=== PATIENT | male | born 1990 | race Two or more races ===

== ENCOUNTER 2019-09-03 01:24 | Emergency (ER) | payer OTHER ==
[~2019-09-03] VITALS: Ht 175.3 cm; Wt 113.4 kg
--- NOTE | 2019-09-03 01:52 | NUR ---
BIB EMS C/O SEIZURE WITNESSED BY LASTED APPROX 5MIN PER EMS REPORT. + ORAL TRAUMA. CURRENTLY A, OX4. W/ C/O H/A, VSS. WILL CONT TO MONITOR ,
[2019-09-03] MEDS ORDERED: ACETAMINOPHEN ES 500 MG TABLET ONE (02:08)
[2019-09-03 02:10] LABS: BASOPHILS % (AUTO) 0.6 % (0.0-2.0); EOSINOPHILS % (AUTO) 2.9 % (0.0-6.0); HEMATOCRIT 45 % (39-51); LYMPHOCYTES # (AUTO) 2.4 /CMM (0.8-4.8); LYMPHOCYTES % (AUTO) 33.2 % (20.0-44.0); MEAN CORPUSCULAR HGB CONC 33 g/dl (31.0-36.0); MEAN CORPUSCULAR VOLUME 85 fL (80-96); MONOCYTES # (AUTO) 0.5 /CMM (0.1-1.30); MONOCYTES % (AUTO) 7.5 % (2.0-12.0); NEUTROPHILS # (AUTO) 4.1 /CMM (1.8-8.9); NEUTROPHILS % (AUTO) 55.8 % (43.0-81.0); PLATELET COUNT (AUTO) 212 /CMM (150-450); WHITE BLOOD COUNT (AUTO) 7.3 K/uL (4.3-11.0)
[2019-09-03 02:26] LABS: ALBUMIN 3.7 g/dL (3.4-5.0); BILIRUBIN,DIRECT 0.1 mg/dL (0.0-0.2); BILIRUBIN,TOTAL 0.4 mg/dL (0.2-1.0); CALCIUM, SERUM 8.7 mg/dL (8.5-10.1); POTASSIUM 3.9 mmol/L (3.5-5.1); TOTAL PROTEIN, SERUM 8.2 g/dL (6.4-8.2)
[2019-09-03] MEDS ORDERED: ACETAMINOPHEN ES 500 MG TABLET PO ONE (02:30)
--- NOTE | 2019-09-03 02:33 | NUR ---
Patient is resting comfortably in bed with eyes closed. Easily aroused. VSS
[2019-09-03 04:52] LABS: APPEARANCE,URINE Clear (CLEAR); BILIRUBIN,URINE Negative (NEGATIVE); BLOOD, URINE Negative Ery/uL (NEGATIVE); COLOR,URINE Yellow (YELLOW); KETONES,URINE Negative (NEGATIVE); LEUKOCYTE ESTERASE ,URINE Negative (NEGATIVE); NITRITE, URINE Negative (NEGATIVE); PH,URINE 5.5 (5.0-8.0); PROTEIN,URINE Trace mg/dl (NEGATIVE); UGLUCOSE Negative (NEGATIVE); UROBILINOGEN,URINE 0.2 EU/dL (0.2)
--- NOTE | 2019-09-03 05:04 | NUR ---
PT IS MEDICALLY CLEAR FOR D/C. VSS. STABLE GAITS NOTED UOPON AMBULATION. CALLED TO HOSTESS THE PT. IV removed. Catheter intact and site benign. Pressure and 4x4 applied to site. No bleeding noted.
[2019-09-03 05:25] LABS: BACTERIA,URINE Rare /HPF (None Seen); RBC,URINE 0-2 /HPF (0-2); SQUAMOUS EPITHELIAL CELL,UR Rare /HPF (None Seen)
--- NOTE | 2019-09-03 05:28 | NUR ---
PT WAS PICKED UP BY HIS FAMILY IN STABLE CONDITION. Patient discharged to home in stable condition. Written and verbal after care instructions given. Patient verbalizes understanding of instruction.
[2019-09-03 05:29] VITALS: BP 119/58
== END 2019-09-03 05:29 | disposition home or self-care (01) ==
LOC: ER 01:26
DX: R56.9 Unspecified convulsions (principal)
CPT/HCPCS: 36415; 70450-TC; 80048-TC; 80076-TC; 80305; 81000-TC; 85025-TC

== ENCOUNTER 2020-08-01 18:08 | Inpatient (IN) | payer OTHER, SELFPAY ==
[~2020-08-01] VITALS: Ht 175.3 cm; Wt 129.3 kg
[2020-08-01] MEDS ORDERED: LEVE500T20 PO (18:27)
[2020-08-01] MEDS ORDERED: EMPA10TA PO (18:27)
[2020-08-01] MEDS ORDERED: DEXAMETHASONE SOD PHOSPHATE 6 MG in IV D5W 50 ML IV ONE (18:30)
[2020-08-01] MEDS ORDERED: IV NS 0.9% 1,000 ML IV ONE (18:30)
--- NOTE | 2020-08-01 18:31 | NUR ---
GOT BED 102
--- NOTE | 2020-08-01 18:37 | NUR ---
BIBS FROM HOME TO ER BED 6. AAOX4. SOB, BREATHING RAPID AND DEEP. NOTED O2 SAT % 89% ON RA. AMBULATORY. CAME IN FOR SHORTNESS OF BREATH. PT REPORTS THAT HE HAS POSITIVE COVID RESULT LAST WEEK. SHORT STARTED 3 DAYS AGO WORST TODAY. PT PLACED ON O2 VIA NC @ 4LPM SATTING @ 97%. WAS AT THE BEDSIDE FOR EVAL. ORDERS RECEIVED, NOTED AND CARRIED OUT, IV LINE ESTABLISHED ON LAC 18G, BLOOD DRAWN AND SENT TO LAB. PT ON MONITOR.
[2020-08-01] MEDS ORDERED: DEXAMETHASONE SOD PHOSPHATE 10 MG/ML VIAL ONE (18:39)
[2020-08-01 18:45] LABS: BASOPHILS % (AUTO) 0.6 % (0.0-2.0); EOSINOPHILS % (AUTO) 0.1 % (0.0-6.0); HEMATOCRIT 45 % (39-51); HEMOGLOBIN 15.2 g/dL (13.5-17.5); LYMPHOCYTES # (AUTO) 0.8 /CMM (0.8-4.8); LYMPHOCYTES % (AUTO) 19.3 % (20.0-44.0); MEAN CORPUSCULAR HGB CONC 34 g/dl (31.0-36.0); MEAN CORPUSCULAR VOLUME 85 fL (80-96); MONOCYTES # (AUTO) 0.3 /CMM (0.1-1.30); MONOCYTES % (AUTO) 7.4 % (2.0-12.0); NEUTROPHILS % (AUTO) 72.6 % (43.0-81.0); PLATELET COUNT (AUTO) 212 /CMM (150-450); RED BLOOD CELL COUNT(AUTO) 5.34 MIL/uL (4.5-6.0); WHITE BLOOD COUNT (AUTO) 4.1 K/uL (4.3-11.0)
[2020-08-01 18:54] LABS: CARBON DIOXIDE 29 mmol/L (21-32); CHLORIDE 97 mmol/L (98-107); GLUCOSE 146 mg/dL (74-106); POTASSIUM 4.3 mmol/L (3.5-5.1); SODIUM SERUM 135 mmol/L (136-145); UREA NITROGEN, BLOOD 9 mg/dL (7-18)
[2020-08-01 19:07] LABS: ALANINE AMINOTRANSFERASE 72 U/L (12-78); ALBUMIN 3.1 g/dL (3.4-5.0); ALKALINE PHOSPHATASE 50 U/L (46-116); ASPARTATE AMINOTRANSFERASE 63 U/L (15-37); B-TYPE NATRIURETIC PEPTIDE 10 PG/ML (0-125); BILIRUBIN,TOTAL 0.5 mg/dL (0.2-1.0); TOTAL PROTEIN, SERUM 7.8 g/dL (6.4-8.2)
[2020-08-01] MEDS ORDERED: CEFTRIAXONE 1GM BAG (ER ONLY) 50 ML IV ONE ×2 (19:30→19:35)
[2020-08-01] MEDS ORDERED: AZITHROMYCIN 500 MG in IV D5W 250 ML IV ONE (19:30)
[2020-08-01] MEDS ORDERED: AZITHROMYCIN 500 MG VIAL ONE (19:35)
[2020-08-01 19:52] LABS: CREATINE KINASE, TOTAL 159 U/L (39-308); FERRITIN 821 ng/mL (8-388)
[2020-08-01 19:56] LABS: C-REACTIVE PROTEIN 5.5 mg/dL (0.0-0.9)
--- NOTE | 2020-08-01 20:30 | NUR ---
REPORT GIVEN TO JOSE C GABRIEL FOR ROSELIA
--- NOTE | 2020-08-01 21:10 | NUR ---
pt transported to unit on [facility] with emt and rn at bedside w/ acls protocol. nad noted during transport. pt ambulated from gurney to bed w/o assist
--- NOTE | 2020-08-01 21:35 | NUR ---
TELE/RN OPENING NOTES RECEIVED REPORT AT 2030HRS FROM ED RN COLLEEN, PATIENT WILL BE COMING IN TO ROOM 102. PATIENT ARRIVED ON UNIT AT 2100 HRS VIA GURNEY. PATIENT SUSTAINED NO INJURIES DURING TRANSPORT. PATIENT AMBULATED TO BED BY SELF SAFELY. PATIENT ON NC 4L O2 AT 94%. PATIENT V/S ARE WITHIN NORMAL LIMITS. PATIENT STATES NO PAIN AT THIS TIME. IV ACCESS INTACT ON LEFT AC FLUSHING WELL. PATIENT HAS BELONGINGS AT BEDSIDE. SAFETY MEASURES ARE IN PLACE, BED IS LOCKED AND PLACED IN THE LOW POSITION, SIDE RAILS UP X 2, CALL LIGHT IS WITHIN REACH. WILL CONTINUE WITH PATIENT PLAN OF CARE.
[2020-08-01 21:53] VITALS: BP 141/69
[2020-08-01] MEDS ORDERED: ZOLPIDEM TARTRATE 5 MG TABLET PO PRN (22:30)
[2020-08-01] MEDS ORDERED: ACETAMINOPHEN 325 MG TABLET PO PRN (22:30)
[2020-08-01] MEDS ORDERED: MAGNESIUM HYDROXIDE 30 ML UDC PO PRN (22:30)
[2020-08-01] MEDS ORDERED: Z GUARD REMEDY 2 OZ OINT TP PRN (22:30)
[2020-08-01] MEDS ORDERED: HYDROCODONE/APAP 5/325MG TABLET PO PRN (22:30)
[2020-08-01] MEDS ORDERED: ENOXAPARIN SODIUM 40 MG/0.4 ML DISP.SYRIN SQ SCH (22:30)
[2020-08-02] VITALS: BP 147/68
[2020-08-02 04:00] VITALS: BP 131/70
[2020-08-02 06:41] LABS: BASOPHILS % (AUTO) 0.2 % (0.0-2.0); HEMATOCRIT 44 % (39-51); LYMPHOCYTES # (AUTO) 0.5 /CMM (0.8-4.8); LYMPHOCYTES % (AUTO) 21.9 % (20.0-44.0); MEAN CORPUSCULAR HGB CONC 34 g/dl (31.0-36.0); MEAN CORPUSCULAR VOLUME 85 fL (80-96); MONOCYTES # (AUTO) 0.2 /CMM (0.1-1.30); MONOCYTES % (AUTO) 7.3 % (2.0-12.0); NEUTROPHILS # (AUTO) 1.6 /CMM (1.8-8.9); NEUTROPHILS % (AUTO) 70.6 % (43.0-81.0); PLATELET COUNT (AUTO) 240 /CMM (150-450); RED BLOOD CELL COUNT(AUTO) 5.16 MIL/uL (4.5-6.0); WHITE BLOOD COUNT (AUTO) 2.3 K/uL (4.3-11.0)
[2020-08-02 06:43] LABS: CALCIUM, SERUM 8.7 mg/dL (8.5-10.1); CREATININE 0.8 mg/dL (0.6-1.3); MAGNESIUM 2.6 mg/dL (1.8-2.4); PHOSPHORUS 3.3 mg/dL (2.5-4.9); POTASSIUM 4.6 mmol/L (3.5-5.1)
--- NOTE | 2020-08-02 06:51 | NUR ---
TELE/RN CLOSING NOTES PATIENT IN BED RESTING. PATIENT IS ALERT AND ORIENTED X 4. PATIENT STATES NO PAIN AT THIS TIME. IV ACCESS INTACT. ALL NEEDS HAVE BEEN MET. SAFETY MEASURES ARE IN PLACE, BED IS LOCKED AND PLACED IN THE LOW POSITION, SIDE RAILS UP X 3. WILL ENDORSE CARE TO DAY SHIFT NURSE.
[2020-08-02 06:56] LABS: THYROID STIMULATING HORMONE 0.342 uIU/mL (0.358-3.74)
[2020-08-02 08:00] VITALS: BP 122/82
[2020-08-02] MEDS: PANTOPRAZOLE 40 MG TABLET.DR PO SCH (09:02)
[2020-08-02] MEDS: DEXAMETHASONE SOD PHOSPHATE 10 MG/ML VIAL IV SCH (09:03)
[2020-08-02 10:16] LABS: LYMPHOCYTES % (MANUAL) 21 % (16-48); MONOCYTES % (MANUAL) 10 % (0-11.0); NEUTROPHILS % (MANUAL) 69 (42-76)
[2020-08-02] MEDS: ENOXAPARIN SODIUM 40 MG/0.4 ML DISP.SYRIN SQ SCH ×2 (11:57→22:17)
[2020-08-02 12:00] VITALS: BP 122/76
[2020-08-02] MEDS ORDERED: REMDESIVIR (CHARGED) 200 MG, *LOADING DOSE 1 EA in IV NS 0.9% 210 ML IV ONE (13:00)
[2020-08-02 16:00] VITALS: BP 129/71
--- NOTE | 2020-08-02 19:31 | NUR ---
RN NOTE PATIENT AWAKE, A/O X4. ABLE TO MAKE NEEDS KNOWN. ON O2 4LPM VIA NASAL CANNULA. NO SOB OR ANY S/S OF DISTRESS. TELE MONITOR ON, HR 79. DENIES PAIN, NO S/S OF ANY DISCOMFORT. WITH IV ACCESS, LEFT AC #18. PATENT AND INTACT, NO S/S OF ANY INFILTRATION. ALL NEEDS ANTICIPATED. BED LOCKED AND IN LOWEST POSITION. SAFETY MEASURES IN PLACE. CALL LIGHT WITHIN REACH. WILL CONTINUE TO MONITOR.
[2020-08-02 20:00] VITALS: BP 120/66
--- NOTE | 2020-08-02 22:40 | NUR ---
PATIENT REQUESTED FOR SLEEPING AID, STATED "DIDN'T SLEEP AT ALL LAST NIGHT." NOTIFIED TREVOR LANDA WITH NEW ORDERS TO CONTINUE AMBIEN 5MG QHS PRN NOTED AND CARRIED OUT.
[2020-08-02] MEDS: ZOLPIDEM TARTRATE 5 MG TABLET PO PRN (23:34)
[2020-08-03] VITALS: BP 116/78
[2020-08-03 04:00] VITALS: BP 120/75
--- NOTE | 2020-08-03 06:54 | NUR ---
RN NOTE PATIENT AWAKE, A/O X4. ON O2 6LPM VIA NASAL CANNULA O2 SAT 95%. NO SOB OR ANY S/S OF DISTRESS. TELE MONITOR ON, HR 60'S. DENIES PAIN. WITH IV ACCESS, LEFT AC #18. PATENT AND INTACT, NO S/S OF ANY INFILTRATION. NO SIGNIFICANT CHANGES DURING THIS SHIFT. BED LOCKED AND IN LOWEST POSITION. SAFETY MEASURES IN PLACE. CALL LIGHT WITHIN REACH. WILL ENDORSE TO AM SHIFT.
[2020-08-03 07:10] LABS: BASOPHILS % (AUTO) 0.1 % (0.0-2.0); HEMATOCRIT 42 % (39-51); HEMOGLOBIN 14.2 g/dL (13.5-17.5); LYMPHOCYTES # (AUTO) 0.7 /CMM (0.8-4.8); LYMPHOCYTES % (AUTO) 9.8 % (20.0-44.0); MEAN CORPUSCULAR HGB CONC 34 g/dl (31.0-36.0); MEAN CORPUSCULAR VOLUME 84 fL (80-96); MONOCYTES # (AUTO) 0.6 /CMM (0.1-1.30); MONOCYTES % (AUTO) 8.3 % (2.0-12.0); NEUTROPHILS # (AUTO) 6.2 /CMM (1.8-8.9); NEUTROPHILS % (AUTO) 81.8 % (43.0-81.0); PLATELET COUNT (AUTO) 338 /CMM (150-450); RED BLOOD CELL COUNT(AUTO) 4.92 MIL/uL (4.5-6.0); WHITE BLOOD COUNT (AUTO) 7.6 K/uL (4.3-11.0)
--- NOTE | 2020-08-03 07:30 | NUR ---
RN OPENING NOTE PATIENT RESTING IN BED, A/O X4, ON 6L NC SPO2 SAT 96%. NO SOB OR ANY S/S OF RESP DISTRESS NOTED. TELE MONITOR DENOTES NSR HR IN 60'S. PT DENIES PAIN. IV ACCESS, LAC #18, FLUSHED, PATENT AND INTACT, NO S/S OF ANY INFILTRATION. ALL PT SAFETY PRECAUTIONS IN PLACE, WILL CONT TO MONITOR Addendum: 08/03/20 at 0928 by FANI GARCIA RN SEIZURE PRECAUTIONS IN PLACE
[2020-08-03 08:00] VITALS: BP 126/71
[2020-08-03] MEDS: PANTOPRAZOLE 40 MG TABLET.DR PO SCH (08:19)
[2020-08-03] MEDS: DEXAMETHASONE SOD PHOSPHATE 10 MG/ML VIAL IV SCH (08:19)
[2020-08-03 08:42] LABS: CALCIUM, SERUM 9.1 mg/dL (8.5-10.1); CREATININE 0.8 mg/dL (0.6-1.3); POTASSIUM 4.3 mmol/L (3.5-5.1)
[2020-08-03 08:48] LABS: BILIRUBIN,DIRECT 0.2 mg/dL (0.0-0.2); BILIRUBIN,TOTAL 0.4 mg/dL (0.2-1.0); TOTAL PROTEIN, SERUM 7.6 g/dL (6.4-8.2)
[2020-08-03] MEDS: ENOXAPARIN SODIUM 40 MG/0.4 ML DISP.SYRIN SQ SCH ×2 (11:04→22:25)
[2020-08-03 12:00] VITALS: BP 130/74
[2020-08-03] MEDS: REMDESIVIR (CHARGED) 100 MG in IV NS 0.9% 100 ML IV SCH (13:31)
[2020-08-03 16:00] VITALS: BP 128/87
--- NOTE | 2020-08-03 19:00 | NUR ---
RN CLOSING NOTE NO CHANGES TO PT DURING SHIFT. PT TOLERATED NC 6LPM WELL, SPO2 92-96%, NO SIGNS OF RESP DISTRESS OR SOB. PT RECEIVED 2ND DOSE OF 4 TOTAL REMDESIVIR TREATMENTS. ALL PT SAFETY PRECAUTIONS IN PLACE, WILL ENDORSE ROSELIA TO ONCOMING RN
--- NOTE | 2020-08-03 19:41 | NUR ---
RN NOTE PATIENT AWAKE, A/O X4. ABLE TO MAKE NEEDS KNOWN. ON O2 6LPM VIA NASAL CANNULA. NO SOB OR ANY S/S OF DISTRESS. TELE MONITOR ON, HR 70'S. DENIES PAIN, NO S/S OF ANY DISCOMFORT. WITH IV ACCESS, LEFT AC #18. PATENT AND INTACT, NO S/S OF ANY INFILTRATION. ALL NEEDS ANTICIPATED. BED LOCKED AND IN LOWEST POSITION. SAFETY MEASURES IN PLACE. CALL LIGHT WITHIN REACH. WILL CONTINUE TO MONITOR.
[2020-08-03 20:00] VITALS: BP 114/74
[2020-08-03] MEDS: ZOLPIDEM TARTRATE 5 MG TABLET PO PRN (22:24)
[2020-08-04] VITALS: BP 113/88
[2020-08-04] MEDS: MAG HYDROX/AL HYDROX/SIMETH 30 ML UDC PO PRN ×2 (01:07→17:22)
[2020-08-04 04:00] VITALS: BP_SYST 116; BP_SYST 95; BP_DIAS 73; BP_DIAS 79
[2020-08-04 06:06] LABS: BASOPHILS % (AUTO) 0.1 % (0.0-2.0); EOSINOPHILS % (AUTO) 0.1 % (0.0-6.0); HEMATOCRIT 40 % (39-51); HEMOGLOBIN 13.7 g/dL (13.5-17.5); LYMPHOCYTES # (AUTO) 1.2 /CMM (0.8-4.8); LYMPHOCYTES % (AUTO) 15.3 % (20.0-44.0); MEAN CORPUSCULAR HGB CONC 34 g/dl (31.0-36.0); MEAN CORPUSCULAR VOLUME 84 fL (80-96); MONOCYTES # (AUTO) 0.7 /CMM (0.1-1.30); NEUTROPHILS % (AUTO) 75.5 % (43.0-81.0); PLATELET COUNT (AUTO) 366 /CMM (150-450)
[2020-08-04 06:14] LABS: BILIRUBIN,DIRECT 0.2 mg/dL (0.0-0.2); BILIRUBIN,TOTAL 0.5 mg/dL (0.2-1.0); CALCIUM, SERUM 8.5 mg/dL (8.5-10.1); CREATININE 0.8 mg/dL (0.6-1.3); POTASSIUM 3.8 mmol/L (3.5-5.1); TOTAL PROTEIN, SERUM 7.2 g/dL (6.4-8.2)
--- NOTE | 2020-08-04 07:01 | NUR ---
RN NOTE PATIENT RESTING IN BED, A/O X4. ABLE TO MAKE NEEDS KNOWN. ON O2 6LPM VIA NASAL CANNULA O2 SAT 96%. NO SOB OR ANY S/S OF DISTRESS. DENIES PAIN, NO S/S OF ANY DISCOMFORT. WITH IV ACCESS, LEFT AC #18. PATENT AND INTACT, NO S/S OF ANY INFILTRATION. NEEDS ATTENDED PROMPTLY. BED LOCKED AND IN LOWEST POSITION. SAFETY MEASURES IN PLACE. CALL LIGHT WITHIN REACH. WILL ENDORSE TO AM SHIFT.
--- NOTE | 2020-08-04 07:30 | NUR ---
RN OPENING NOTE PATIENT RESTING IN BED, A/O X4, ON 6L NC SPO2 SAT 98%. NO SOB OR ANY S/S OF RESP DISTRESS NOTED. TELE MONITOR DENOTES NSR HR IN 70'S. PT DENIES PAIN. IV ACCESS, LAC #18, FLUSHED, PATENT AND INTACT, NO S/S OF ANY INFILTRATION. ALL PT SAFETY PRECAUTIONS IN PLACE, SZ PRECAUTIONS IN PLACE, WILL CONT TO MONITOR
[2020-08-04 08:00] VITALS: BP 126/79
[2020-08-04] MEDS: PANTOPRAZOLE 40 MG TABLET.DR PO SCH (08:22)
[2020-08-04] MEDS: DEXAMETHASONE SOD PHOSPHATE 10 MG/ML VIAL IV SCH (08:22)
[2020-08-04] MEDS: ONDANSETRON HCL/PF 4 MG/2 ML VIAL IVP PRN ×2 (11:44→18:44)
[2020-08-04] MEDS: ENOXAPARIN SODIUM 40 MG/0.4 ML DISP.SYRIN SQ SCH ×2 (11:47→22:29)
[2020-08-04 12:00] VITALS: BP 116/66
[2020-08-04] MEDS: REMDESIVIR (CHARGED) 100 MG in IV NS 0.9% 100 ML IV SCH (13:15)
[2020-08-04 16:00] VITALS: BP 112/69
--- NOTE | 2020-08-04 18:54 | NUR ---
RN CLOSING NOTE NO CHANGES TO PT STATUS DURING SHIFT. 3RD OF 4 REMDESIVIR TREATMENTS ADMINISTERED TODAY. PT ON NC 6L TOLERATING WELL SPO2 96%, NO SIGNS OF RESP DISTRESS OR SOB. PT TELEMONITOR READING NSR 70-80s WITH OCCASIONAL PVCs. PT C/O ABDOMINAL DISCOMFORT, ZOFRAN GIVEN. ALL PT SAFETY PRECAUTIONS IN PLACE, SZ PRECAUTIONS WELL, WILL ENDORSE ROSELIA TO ONCOMING RN
--- NOTE | 2020-08-04 19:00 | NUR ---
RN OPENING NOTE RECEIVED PATIENT IN BED RESTING ALERT ORIENTED X4 VERBALLY RESPONSIVE ON 6L OXYGEN VIA NASAL CANNULA, O2:97%,IV SITE IS ON LEFT AC INTACT PATENT,AMBULATORY WITH ASSIST CONTINENT TO BOWEL/BLADDER,COMPLINES OF STOMACH PAIN,HE STATES THAT IS HUNGER PAIN BECAUSE HE DIDN'T EAT WELL FOR MANY DAYS, PREVIOUS SHIFT GIVEN MEDS FOR DIGESTION,CONTINUE TO MONITOR,SAFETY MEASURE IMPLEMENT,CALL LIGHT WITHIN REACH,BED IN LOW POSITON AND LOCKED CONTINUE TO MONITOR.
[2020-08-04 20:00] VITALS: BP 107/66
--- NOTE | 2020-08-04 20:32 | NUR ---
RN NOTE NORCO 5-325MG PRN GIVEN FOR STOMACH PAIN CONTINUE TO MONITOR.
[2020-08-04] MEDS: ZOLPIDEM TARTRATE 5 MG TABLET PO PRN (22:31)
[2020-08-05] VITALS: BP 122/72
[2020-08-05 04:00] VITALS: BP 117/72
[2020-08-05 06:08] LABS: BASOPHILS % (AUTO) 0.1 % (0.0-2.0); EOSINOPHILS % (AUTO) 0.2 % (0.0-6.0); HEMATOCRIT 41 % (39-51); HEMOGLOBIN 13.8 g/dL (13.5-17.5); LYMPHOCYTES # (AUTO) 1.6 /CMM (0.8-4.8); MEAN CORPUSCULAR HGB CONC 34 g/dl (31.0-36.0); MEAN CORPUSCULAR VOLUME 84 fL (80-96); MONOCYTES # (AUTO) 0.8 /CMM (0.1-1.30); MONOCYTES % (AUTO) 10.5 % (2.0-12.0); NEUTROPHILS # (AUTO) 5.5 /CMM (1.8-8.9); NEUTROPHILS % (AUTO) 69.2 % (43.0-81.0); PLATELET COUNT (AUTO) 410 /CMM (150-450); RED BLOOD CELL COUNT(AUTO) 4.84 MIL/uL (4.5-6.0); WHITE BLOOD COUNT (AUTO) 7.9 K/uL (4.3-11.0)
[2020-08-05 06:17] LABS: BILIRUBIN,DIRECT 0.3 mg/dL (0.0-0.2); BILIRUBIN,TOTAL 0.6 mg/dL (0.2-1.0); CALCIUM, SERUM 8.4 mg/dL (8.5-10.1); CREATININE 0.8 mg/dL (0.6-1.3); POTASSIUM 3.7 mmol/L (3.5-5.1); TOTAL PROTEIN, SERUM 7.3 g/dL (6.4-8.2)
--- NOTE | 2020-08-05 06:33 | NUR ---
RN CLOSING NOTE PATIENT REMAINS ON ALERT ORIENTED X4 VERBALLY RESPONSIVE NO 6L OXYGEN VIA NASAL CANNULA,O2:97% NO SOB NOT ACUTE DISTRESS NOTED IV SITE IS ON LEFT AC INTACT PATENT,AMBULATORY WITH ASSIST CONTINENT TO BOWEL/BLADDER ALL DUE MEDS GIVEN MD ORDERED KEEP CLEAN AND DRY ALL THE TIME,KEPT CALL LIGHT WITHIN REACH,ALL NEEDS MET ENDORSE NEXT COMING SHIFT FOR CONTINUATION OF CARE.
--- NOTE | 2020-08-05 07:30 | NUR ---
RN OPENING NOTES PATIENT PRESENT IN BED, A/OX4, AMBULATORY, WITH NC @ 6L OF O2, TOLERATING WELL, ABLE TO WALK, DENIES PAIN, DISCOMFORT, NSR ON TELE-MONITOR WITH 68-70 OF HR, L AC G198, INTACT, PATENT, FLUSHED, SAFETY MEASURES IN PACE, CALL LIGHT IN REACH, BED LOCKED, IN LOWEST POSITION, WILL CONT TO MONITOR
[2020-08-05 08:00] VITALS: BP 121/72
[2020-08-05] MEDS: PANTOPRAZOLE 40 MG TABLET.DR PO SCH (08:22)
[2020-08-05] MEDS: DEXAMETHASONE SOD PHOSPHATE 10 MG/ML VIAL IV SCH (08:22)
[2020-08-05 10:23] LABS: ABG BASE EXCESS 3.9 mmol/L; ABG OXYGEN SATURATION 94.2 % (92.0-98.5); ABG PCO2 36.4 mmHg (35.0-45.0); AaDO2 284.7 mmHg; COHb 0.5 % (0.5-1.5); MetHb 0.4 % (0.0-1.5); O2Hb 93.4 % (94.0-97.0); SITE, ABG Right Radial; VENT MODE, BG Nasal Cannula
[2020-08-05 12:00] VITALS: BP 117/71
[2020-08-05] MEDS: ENOXAPARIN SODIUM 40 MG/0.4 ML DISP.SYRIN SQ SCH ×2 (12:23→23:03)
--- NOTE | 2020-08-05 13:30 | NUR ---
STARTED LAST DOSE OF Remdesivir
[2020-08-05] MEDS: REMDESIVIR (CHARGED) 100 MG in IV NS 0.9% 100 ML IV SCH (13:31)
[2020-08-05 16:00] VITALS: BP 107/66
--- NOTE | 2020-08-05 18:43 | NUR ---
RN CLOSING NOTES Remains stable during the shift, tolerating o2 therapy well, provided with medications and assistance, will endorse to PM shift RN for ROSELIA
--- NOTE | 2020-08-05 19:30 | NUR ---
RN OPENING NOTES: RECEIVED PT A/OX4 IN BED RESTING COMFORTABLY. PATIENT IN NO S/SX OF ACUTE DISTRESS AT THIS TIME. NO SOB NOTED. PATIENT'S BREATHING IS EVEN AND UNLABORED. PATIENT IS ON 6L OF OXYGEN VIA NC; TOLERATING WELL. PATIENT ON TELE MONITORING READING SINUS RHYTHM HR IS @70S AT THE TIME OF RECEIVED. PATIENT ON CARDIAC DIET; TOLERATES WELL. NOTED IV SITE ON L AC#18; PATENT, INTACT AND FLUSHING WELL; NO S/S OF INFECTION OR INFILTRATION. SAFETY MEASURES HAVE BEEN PROVIDED AND IMPLEMENTED. PATIENT BED ALARM IS ON. HEAD OF BED ELEVATED. BED IS LOCKED, IN LOWEST POSITION AND SIDE RAILS UP. CALL LIGHT WITHIN REACH OF THE PATIENT. APPLICABLE ISOLATION PRECAUTIONS IN PLACE. WILL CONTINUE TO MONITOR AND REASSESS FOR ANY CHANGES AND WILL CARRY OUT ANY ONGOING AND ACTIVE MD ORDER.
[2020-08-05 20:00] VITALS: BP 109/63
--- NOTE | 2020-08-05 23:00 | NUR ---
RN NOTES NO CHANGE IN PATIENT CONDITION AT THIS TIME PATIENT VITALS STABLE, NO SIGNS OF ACUTE RESPIRATORY DISTRESS. GASTROENTEROLOGY TEACHER MADE AWARE. WILL CONTINUE TO MONITOR AND REASSESS FOR ANY CHANGES THROUGHOUT THE SHIFT.
[2020-08-06] VITALS: BP 116/71
[2020-08-06] MEDS: ZOLPIDEM TARTRATE 5 MG TABLET PO PRN (01:52)
--- NOTE | 2020-08-06 03:00 | NUR ---
RN NOTES PATIENT REMAINS IN NO ACUTE RESPIRATORY DISTRESS AT THIS TIME, NO CHANGES TO CONDITION/STATUS. AM PATIENT CARE DONE. RESOURCE MANAGER WELL AWARE. WILL CONTINUE TO MONITOR AND REASSESS FOR ANY CHANGES THROUGHOUT THE SHIFT
[2020-08-06 04:00] VITALS: BP 120/79
[2020-08-06 06:30] LABS: BASOPHILS % (AUTO) 0.3 % (0.0-2.0); EOSINOPHILS % (AUTO) 0.6 % (0.0-6.0); HEMATOCRIT 40 % (39-51); HEMOGLOBIN 13.5 g/dL (13.5-17.5); LYMPHOCYTES # (AUTO) 1.8 /CMM (0.8-4.8); LYMPHOCYTES % (AUTO) 23.5 % (20.0-44.0); MEAN CORPUSCULAR HGB CONC 34 g/dl (31.0-36.0); MEAN CORPUSCULAR VOLUME 84 fL (80-96); MONOCYTES # (AUTO) 0.7 /CMM (0.1-1.30); MONOCYTES % (AUTO) 9.1 % (2.0-12.0); NEUTROPHILS # (AUTO) 5.2 /CMM (1.8-8.9); NEUTROPHILS % (AUTO) 66.5 % (43.0-81.0); PLATELET COUNT (AUTO) 440 /CMM (150-450); RED BLOOD CELL COUNT(AUTO) 4.76 MIL/uL (4.5-6.0); WHITE BLOOD COUNT (AUTO) 7.8 K/uL (4.3-11.0)
--- NOTE | 2020-08-06 06:47 | NUR ---
RN CLOSING NOTE: PATIENT REMAINS IN ROOM IN NO SIGNS OF RESPIRATORY DISTRESS, PATIENT STILL ON 5L OF O2 VIA NC TOLERATING WELL SATURATING @ >95% SP02. SAFETY MEASURES IMPLEMENTED, BED IN LOWEST POSITION, LOCKED, SIDE RAILS UP, CALL LIGHT WITHIN REACH. ALL NEEDS AND ORDERS ADDRESSED DURING THE SHIFT. IV ACCESS MAINTAINED INTACT, SECURED AND FLUSHING WELL. ALL DUE MEDS GIVEN ORDERED & SCHEDULED ; PATIENT TOLERATED WELL. PATIENT KEPT CLEAN AND COMFORTABLE WITHIN THE SHIFT. PATIENT ENDORSED TO INCOMING SHIFT RN WITH STABLE VITAL SIGN AND FOR CONTINUITY OF CARE.
[2020-08-06 06:55] LABS: BILIRUBIN,DIRECT 0.2 mg/dL (0.0-0.2); BILIRUBIN,TOTAL 0.5 mg/dL (0.2-1.0); CALCIUM, SERUM 8.3 mg/dL (8.5-10.1); CREATININE 0.8 mg/dL (0.6-1.3); POTASSIUM 3.8 mmol/L (3.5-5.1)
--- NOTE | 2020-08-06 07:30 | NUR ---
RN OPENING NOTE: PATIENT IN BED, NO SIGNS OF DISCOMFORT OR DISTRESS. PATIENT ON 5L OF O2 VIA NC TOLERATING WELL SATURATING @ >95% SP02. SAFETY MEASURES IN PLACE, BED IN LOWEST POSITION, LOCKED, SIDE RAILS UP, CALL LIGHT WITHIN REACH. ALL NEEDS ADDRESSED AT THIS TIME. IV ACCESS INTACT, SECURED. WILL CONTINUE POC.
[2020-08-06 08:00] VITALS: BP 115/68
[2020-08-06] MEDS: PANTOPRAZOLE 40 MG TABLET.DR PO SCH (09:10)
[2020-08-06] MEDS: DEXAMETHASONE SOD PHOSPHATE 10 MG/ML VIAL IV SCH (09:10)
[2020-08-06] MEDS ORDERED: ALBU18HF2 INH (11:35)
[2020-08-06] MEDS ORDERED: METH4TAB3 PO (11:35)
[2020-08-06 12:00] VITALS: BP 110/63
--- NOTE | 2020-08-06 13:03 | NUR ---
PATIENT TRIAL OF OXYGEN ON ROOM AIR FAILED. PATIENT OXYGEN SATURATION LESS THAN 88% AT REST ON ROOM AIR. JOSAFAT [employer]AG[employer] AND [employer] SERVICE REPRESENTATIVE NOTIFIED. WILL INCLUDE OXYGEN AT HOME PART OF THE DISCHARGE PLAN. PATIENT AND FAMILY AWARE.
[2020-08-06] MEDS: ENOXAPARIN SODIUM 40 MG/0.4 ML DISP.SYRIN SQ SCH (13:22)
[2020-08-06] MEDS: REMDESIVIR (CHARGED) 100 MG in IV NS 0.9% 100 ML IV SCH (13:22)
[2020-08-06 16:00] VITALS: BP 112/73
--- NOTE | 2020-08-06 19:30 | NUR ---
Patient discharged to home via private auto with significant other. No s/s of discomfort or distress. Oxygen connected and place at 3 L/min via nasal cannula. concentrator delivered to home. IV and color television console monitor removed. All belongings sent with patient. Discharge/follow up instructions provided and reviewed with patient. Rx given. Patient verbalized understanding of instructions/education provided.
== END 2020-08-06 19:52 | disposition home or self-care (01) | DRG 177 ==
LOC: ER 18:24 → TELE1 20:41
PROVIDERS: ADMIT Student in an Organized Health Care Education/Training Program; ATTEND Nurse Practitioner Acute Care
DX: U07.1 COVID-19 (principal); J96.01 Acute respiratory failure with hypoxia; J12.82 Pneumonia due to coronavirus disease 2019; E87.1 Hypo-osmolality and hyponatremia; E44.1 Mild protein-calorie malnutrition; Z68.41 Body mass index [BMI] 40.0-44.9, adult; D75.1 Secondary polycythemia; D70.9 Neutropenia, unspecified; E86.1 Hypovolemia; E66.01 Morbid (severe) obesity due to excess calories; E88.09 Other disorders of plasma-protein metabolism, not elsewhere classified
CPT/HCPCS: 36415; 36600; 71045-TC; 80048-TC; 80053-TC; 80061-TC; 80076-TC; 82550-TC; 82728-TC; 83605-TC; 83615-TC; 83735-TC; 83880; 84100-TC; 84443-TC; 84484-TC; 85025-TC; 85378-TC; 85610-TC; 85730-TC; 86140-TC; 87040-TC; 87081-TC; 93970-TC; A4216; A6253; G0378; J0456; J0696; J1100; J1650; J2405; J7030; J7040; J7050; J7060; U0003

== ENCOUNTER 2022-03-01 23:24 | Emergency (ER) | payer OTHER ==
[~2022-03-01] VITALS: Ht 175.3 cm; Wt 113.4 kg
[~2022-03-01 23:24] MED LIST: ALBU18HF2 INH; METH4TAB3 PO
[2022-03-01 23:26] VITALS: BP 162/72
[2022-03-02] MEDS ORDERED: ACETAMINOPHEN ES 500 MG TABLET ONE (00:14)
--- NOTE | 2022-03-02 00:26 | NUR ---
PATIENT BIBRA FROM HOME C/O SEIZURE WITH Hx SEIZURE. PATIENT IS A/O X 4, RR EVEN AND UNLAOBRED NO SOB NOTED. VSS. PATIENT IS AFEBRILE. PATIENT CONNECTED TO MONITORS.
[2022-03-02] MEDS ORDERED: IV NS 0.9% 1,000 ML BAG IV ONE (00:30)
[2022-03-02] MEDS ORDERED: ACETAMINOPHEN ES 500 MG TABLET PO ONE (00:30)
--- NOTE | 2022-03-02 00:37 | NUR ---
PT TAKEN TO CT
--- NOTE | 2022-03-02 02:22 | NUR ---
Patient discharged to home in stable condition. Written and verbal after care instructions given. Patient verbalizes understanding of instruction.
== END 2022-03-02 02:23 | disposition home or self-care (01) ==
LOC: ER 23:26
DX: G40.909 Epilepsy, unspecified, not intractable, without status epilepticus (principal); S00.81XA Abrasion of other part of head, initial encounter; Z79.899 Other long term (current) drug therapy; X58.XXXA Exposure to other specified factors, initial encounter; Y93.89 Activity, other specified; Y92.89 Other specified places as the place of occurrence of the external cause; Y99.8 Other external cause status
CPT/HCPCS: 99284; 96360; 70450; 82962; J7030